=== PATIENT | female | born 1985 ===

== ENCOUNTER 2017-11-24 15:24 | Emergency (ER) | payer SELFPAY ==
[2017-11-24 15:30] VITALS: RESP 16; O2SAT 100
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
[2017-11-24 18:58] VITALS: BP 128/64; PULSE 82; TEMP 98.4
== END 2017-11-24 18:57 | disposition home or self-care (01) ==
LOC: H.ER 15:24
DX: S06.0X0A Concussion without loss of consciousness, initial encounter (principal); Y04.0XXA Assault by unarmed brawl or fight, initial encounter; Y92.89 Other specified places as the place of occurrence of the external cause

== ENCOUNTER 2017-12-01 04:23 | Emergency (ER) | payer OTHER ==
[2017-12-01 04:31] VITALS: BMI 26.6
--- NOTE | 2017-12-01 05:07 | ED PDOC ---
HPI: Allergic Reaction Time Seen by Provider: 12/01/17 04:54 Chief Complaint (Nursing): Allergic Reaction Chief Complaint (Provider): Itchy rash x 5 hours History Per: Patient History/Exam Limitations: no limitations Onset/Duration Of Symptoms: Hrs Current Symptoms Are (Timing): Still Present Possible Cause: Unknown Associated Symptoms: Skin Rash Additional Complaint(s): 32 yo female with no medical problems presents with itchy rash. PT states at midnight she woke up with itchiness on the right arm. PT states she took a cool shower and went back to bed. 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 PT denies new food, clothing, lotion, etc. Pt did not take anything for symptoms at home. Past Medical History Reviewed: Historical Data, Nursing Documentation, Vital Signs Vital Signs: Last Vital Signs Temp 97.7 F 12/01/17 04:31 Pulse 87 12/01/17 04:31 Resp 18 12/01/17 04:31 BP 114/73 12/01/17 04:31 Pulse Ox 99 12/01/17 04:31 - Medical History PMH: No Chronic Diseases - Surgical History Surgical History: No Surg Hx - Family History Family History: States: Unknown Family Hx - Living Arrangements Living Arrangements: With Family - Social History Current smoker - smoking cessation education provided: No - Home Medications Home Medications: Ambulatory Orders Medication Instructions Recorded Metoclopramide Hydrochloride 10 mg PO TID PRN #20 tab 02/18/14 [Reglan] Naproxen [Naprosyn] 500 mg PO BID PRN #30 tab 02/18/14 Albuterol HFA [Ventolin HFA 90 1 puff IH Q4 PRN #1 inh 08/24/15 mcg/actuation (8 g)] Azithromycin [Zithromax Z-Gonzalo] 250 mg PO DAILY #1 packet 08/24/15 Oseltamivir [Tamiflu] 75 mg PO BID #9 cap 08/24/15 Cyclobenzaprine [Flexeril] 10 mg PO TID #27 tab 11/24/17 - Allergies Allergies/Adverse Reactions: Allergies Allergy/AdvReac Type Severity Reaction Status Date / Time No Known Allergies Allergy Verified 12/01/17 04:31 Review of Systems ROS Statement: Except As Marked, All Systems Reviewed And Found Negative Constitutional: Negative for: Fever, Chills Gastrointestinal: Negative for: Nausea, Vomiting, Abdominal Pain Skin: Positive for: Rash Physical Exam - Reviewed Nursing Documentation Reviewed: Yes Vital Signs Reviewed: Yes - Physical Exam Appears: Positive for: Well, Non-toxic, No Acute Distress Head Exam: Positive for: ATRAUMATIC, NORMAL INSPECTION, NORMOCEPHALIC Skin: Positive for: Warm, Rash (Erythematous areas on the legs and trunk (+) blanching). Negative for: Normal Color Eye Exam: Positive for: Normal appearance ENT: Positive for: Normal ENT Inspection, Pharynx Is. Negative for: Pharyngeal Erythema, Tonsillar Exudate, Tonsillar Swelling Neck: Positive for: Normal, Painless ROM Cardiovascular/Chest: Positive for: Regular Rate, Rhythm Respiratory: Positive for: Normal Breath Sounds. Negative for: Accessory Muscle Use, Respiratory Distress Back: Positive for: Normal Inspection Extremity: Positive for: Normal ROM Neurologic/Psych: Positive for: Alert, Oriented - ECG O2 Sat by Pulse Oximetry: 99 Disposition - Clinical Impression Clinical Impression: Allergic reaction - Patient ED Disposition Is Patient to be Admitted: Transfer of Care - Disposition Disposition: Transfer of Care Disposition Time: 05:43 Condition: STABLE Forms: [email or web address] (Indian)
[2017-12-01] MEDS ORDERED: DiphenhydrAMINE 50 mg/ml Inj IVP STA (05:23)
[2017-12-01] MEDS ORDERED: Sodium Chloride 0.9% 1,000 ML IV STA (05:23)
[2017-12-01] MEDS ORDERED: DiphenhydrAMINE 50 mg/ml Inj ONE (05:32)
[2017-12-01] MEDS ORDERED: Famotidine 20mg/50ml 20 MG/50 ML BAG IVPB ONE (05:33)
--- NOTE | 2017-12-01 05:43 | ED PDOC ---
- Laboratory Results Result Diagrams: 12/01/17 05:30 12/01/17 05:30 - ECG O2 Sat by Pulse Oximetry: 99 Medical Decision Making Medical Decision Makin This patient is now under the direct care of this provider, endorsed from Frida Sim PA-C pending labs and re-evaluation. 0630 Patient notes slight improvement in symptoms. 0650 Patient notes that her throat is sore. * Rapid strep 0700 * Toradol 30mg IV Patient will be signed out to Dr. Robison pending rapid strep and re-eval. Scribe Attestation: Documented by Maria L Addison, acting as a scribe for Yoselyn Dykes MD. Provider Scribe Attestation: All medical record entries made by the Scribe were at my direction and personally dictated by me. I have reviewed the chart and agree that the record accurately reflects my personal performance of the history, physical exam, medical decision making, and the department course for this patient. I have also personally directed, reviewed, and agree with the discharge instructions and disposition. Disposition Counseled Patient/Family Regarding: Studies Performed, Diagnosis, Need For Followup - Clinical Impression Clinical Impression: Allergic reaction - POA Present On Arrival: None - Disposition Referrals: [facility] [Outside] Disposition: Routine/Home Disposition Time: 07:00 Condition: STABLE Additional Instructions: Followup with clinic for further testing into precise cause of rash. Return to ER for any new or worsening symptoms. Prescriptions: DiphenhydrAMINE [Benadryl] 25 mg PO Q4 PRN #15 cap PRN Reason: Rash Prednisone 50 mg PO DAILY #4 tab Instructions: Skin Rash, Allergy Skin Testing Forms: [employer] (Indonesian) Print Language: INDONESIAN Patient Signed Over To: Ricardo Robison III Handoff Comments: pending rapid strep and re-eval
[2017-12-01 05:46] LABS: BASO # 0.1 K/uL (0.0-0.2); BASO % 0.7 % (0.0-2.0); EOS # 0.6 K/uL (0.0-0.7); EOS % 5.4 % (0.0-4.0); HEMOGLOBIN 12.5 g/dL (12.0-16.0); LYMPH # 2.9 K/uL (1.0-4.3); LYMPH % 25.4 % (20.0-40.0); MEAN CELL VOLUME 86.8 fl (81.0-99.0); MEAN CORPUSCULAR HEMOGLOBIN 28.9 pg (27.0-31.0); MEAN CORPUSCULAR HGB CONC 33.3 g/dL (33.0-37.0); MEAN PLATELET VOLUME 9.9 fl (7.2-11.7); MONO # 1.1 K/uL (0.0-0.8); MONO % 9.5 % (0.0-10.0); NEUT # 6.8 K/uL (1.8-7.0); RBC 4.32 Mil/uL (3.80-5.20); RED CELL DISTRIBUTION WIDTH 14.6 % (11.5-14.5); WHITE BLOOD COUNT 11.6 K/uL (4.8-10.8)
[2017-12-01 05:51] LABS: ALB/GLOB RATIO 1.2 (1.0-2.1); ALBUMIN 3.9 g/dL (3.5-5.0); ALT/SGPT 33 U/L (9-52); AST/SGOT 22 U/L (14-36); BLOOD UREA NITROGEN 19 mg/dl (7-17); CALCIUM 8.9 mg/dL (8.4-10.2); GFR AFRICAN-AMERICAN > 60; GFR NON-AFRICAN AMERICAN > 60
--- NOTE | 2017-12-01 07:07 | ED PDOC ---
- Laboratory Results Result Diagrams: 12/01/17 05:30 12/01/17 05:30 - ECG O2 Sat by Pulse Oximetry: 99 (RA) Pulse Ox Interpretation: Normal - Progress Re-evaluation Time: 09:15 (Symptoms completed resolved. Pt feels well. Results reviewed with Pt using In-demand conceptor Yahaira. Pt is going to be discharged home to follow up with clinic to precise cause of rash.) Condition: Re-examined Medical Decision Making Medical Decision Making: Patient signed out to me by Dr. Dykes at 07:00, pending rapid strep test and re -evaluation (-) Group A Beta Strep Ag Upon provider evaluation patient is medically stable, and requires no further treatment in the ED at this time. Patient will be discharged with Rx for Benadryl and Prenisone. Counseling was provided and all questions were answered in turkmen via [employer] in store marketer regarding diagnosis and need for follow up with clinic for further testing into precise cause of rash. There is agreement to discharge plan. Return if symptoms persist or worsen. Scribe Attestation: Documented by Reza Vinson, acting as a scribe for Ricardo Robison III, DO Provider Scribe Attestation: All medical record entries made by the Scribe were at my direction and personally dictated by me. I have reviewed the chart and agree that the record accurately reflects my personal performance of the history, physical exam, medical decision making, and the department course for this patient. I have also personally directed, reviewed, and agree with the discharge instructions and disposition. Disposition - Clinical Impression Clinical Impression: Allergic reaction - POA Present On Arrival: None - Disposition Referrals: [facility] [Outside] Disposition: Routine/Home Disposition Time: 09:23 Condition: STABLE Additional Instructions: Followup with clinic for further testing into precise cause of rash. Return to ER for any new or worsening symptoms. Prescriptions: DiphenhydrAMINE [Benadryl] 25 mg PO Q4 PRN #15 cap PRN Reason: Rash Prednisone 50 mg PO DAILY #4 tab Instructions: Allergy Skin Testing, Skin Rash Forms: [facility] (Ukrainian) Print Language: SLOVENIAN
[2017-12-01 07:58] VITALS: RESP 19; TEMP 97
[2017-12-01 09:35] VITALS: BP 120/78; PULSE 78
[2017-12-01 10:50] VITALS: O2SAT 99
== END 2017-12-01 09:36 | disposition home or self-care (01) ==
LOC: H.ER 04:23
DX: T78.40XA Allergy, unspecified, initial encounter (principal)
CPT/HCPCS: 80053; 81025; 85025; 87070; 87430; 96361; 96374; 96375; 99284; J1200; J1885; J2930; J7030

== ENCOUNTER 2018-09-10 21:24 | Emergency (ER) | payer SELFPAY ==
[2018-09-10 21:24] VITALS: BMI 26.6
--- NOTE | 2018-09-11 00:02 | ED PDOC ---
HPI: Chest Pain Time Seen by Provider: 09/10/18 21:53 Chief Complaint (Nursing): Chest Pain Chief Complaint (Provider): Chest Pain History Per: Patient, Counter Hop (Pauline ID#: [id number]) Onset/Duration Of Symptoms: Days (x1) Additional Complaint(s): 33 years old female presents to ER for evaluation of left sided chest pain onset yesterday. Patient reports pain radiates up to her neck, side of face and upper back. She states she feels her chest is swollen associated with difficulty breathing. Patient reports taking Aspirin at home with no relief and states pain is not exertional. She denies fever, sweats and palpitations. PMD: Brian Hayes Past Medical History Reviewed: Historical Data, Nursing Documentation, Vital Signs Vital Signs: Last Vital Signs Temp 98.6 F 09/10/18 21:31 Pulse 73 09/10/18 21:31 Resp 16 09/10/18 21:31 BP 136/80 09/10/18 21:31 Pulse Ox 99 09/10/18 21:31 - Medical History PMH: No Chronic Diseases - Surgical History Surgical History: No Surg Hx - Family History Family History: States: Unknown Family Hx - Social History Current smoker - smoking cessation education provided: No Alcohol: None Drugs: Denies - Home Medications Home Medications: Ambulatory Orders Medication Instructions Recorded Metoclopramide Hydrochloride 10 mg PO TID PRN #20 tab 02/18/14 [Reglan] Naproxen [Naprosyn] 500 mg PO BID PRN #30 tab 02/18/14 Albuterol HFA [Ventolin HFA 90 1 puff IH Q4 PRN #1 inh 08/24/15 mcg/actuation (8 g)] Azithromycin [Zithromax Z-Gonzalo] 250 mg PO DAILY #1 packet 08/24/15 Oseltamivir Cap [Tamiflu] 75 mg PO BID #9 cap 08/24/15 Cyclobenzaprine [Flexeril] 10 mg PO TID #27 tab 11/24/17 DiphenhydrAMINE [Benadryl] 25 mg PO Q4 PRN #15 cap 12/01/17 Prednisone 50 mg PO DAILY #4 tab 12/01/17 Lidocaine 1 each TP DAILY #10 adh..patch 09/11/18 Methocarbamol [Robaxin] 750 mg PO BID PRN #20 tab 09/11/18 Naproxen [Naprosyn] 500 mg PO BID #30 tablet 09/11/18 - Allergies Allergies/Adverse Reactions: Allergies Allergy/AdvReac Type Severity Reaction Status Date / Time No Known Allergies Allergy Verified 09/10/18 21:31 Review of Systems ROS Statement: Except As Marked, All Systems Reviewed And Found Negative Constitutional: Negative for: Fever, Sweats Cardiovascular: Positive for: Chest Pain. Negative for: Palpitations Musculoskeletal: Positive for: Neck Pain (Left sided), Back Pain (left upper) Physical Exam - Reviewed Nursing Documentation Reviewed: Yes Vital Signs Reviewed: Yes - Physical Exam Appears: Positive for: Well, No Acute Distress Head Exam: Positive for: ATRAUMATIC, NORMOCEPHALIC Skin: Positive for: Normal Color, Warm, Dry Eye Exam: Positive for: Normal appearance, EOMI, PERRL Neck: Positive for: Normal, Painless ROM, Supple Cardiovascular/Chest: Positive for: Regular Rate, Rhythm. Negative for: Chest Non Tender (Tenderness of left chest wall), Murmur Respiratory: Positive for: Normal Breath Sounds. Negative for: Respiratory Distress Gastrointestinal/Abdominal: Positive for: Normal Exam, Soft. Negative for: Tenderness Back: Positive for: Other (Left upper back tenderness) Extremity: Positive for: Normal ROM. Negative for: Pedal Edema, Swelling Neurological/Psych: Positive for: Awake, Alert, Oriented (x3) - ECG ECG Rhythm: Positive for: Sinus Rhythm. Negative for: ST/T Changes Rate: 69 O2 Sat by Pulse Oximetry: 99 (RA) Pulse Ox Interpretation: Normal Medical Decision Making Medical Decision Making: Time: 2133 A/P: 33 years old female with a musculoskeletal chest pain --Not concerned for cardiac issue --EKG and CXR are normal 2355 Upon provider reevaluation patient is feeling better, is medically stable, and requires no further treatment in the ED at this time. Patient will be discharged home. Counseling was provided and all questions were answered regarding diagnosis and need for follow up with PMD. There is agreement to discharge plan. Return if symptoms persist or worsen. Scribe Attestation: Documented by Jyoti Deleon, acting as a scribe for Arcenio Reyez MD. Provider Scribe Attestation: All medical record entries made by the Scribe were at my direction and personally dictated by me. I have reviewed the chart and agree that the record accurately reflects my personal performance of the history, physical exam, medical decision making, and the department course for this patient. I have also personally directed, reviewed, and agree with the discharge instructions and disposition. Disposition - Clinical Impression Clinical Impression: Chest wall pain - Patient ED Disposition Is Patient to be Admitted: No - Disposition Referrals: Brian Hayes MD [Family Provider] - Disposition: Routine/Home Disposition Time: 23:56 Condition: IMPROVED Prescriptions: Lidocaine 1 each TP DAILY #10 adh..patch Methocarbamol [Robaxin] 750 mg PO BID PRN #20 tab PRN Reason: Pain, Severe (8-10) Naproxen [Naprosyn] 500 mg PO BID #30 tablet Instructions: Chest Pain That Is Not Caused by the Heart (DC), Muscle and Bone Pain (DC) Forms: [facility] (Bulgarian) Print Language: ALBANIAN
[2018-09-11 01:08] VITALS: BP 119/63; RESP 17; TEMP 98.3
[2018-09-11 05:11] VITALS: PULSE 69; O2SAT 99
--- NOTE | 2018-09-11 09:22 | RAD ---
Date of service: 09/10/2018 HISTORY: chest pain COMPARISON: Chest radiographs 05/05/2016. TECHNIQUE: Chest PA and lateral views FINDINGS: LUNGS: No active pulmonary disease. PLEURA: No significant pleural effusion identified. No pneumothorax apparent. CARDIOVASCULAR: No aortic atherosclerotic calcification present. Normal cardiac size. No pulmonary vascular congestion. OSSEOUS STRUCTURES: Scoliotic thoracic deformity reiterated, stable. VISUALIZED UPPER ABDOMEN: Normal. OTHER FINDINGS: None. IMPRESSION: No interval acute cardiopulmonary disease appreciated.
--- NOTE | 2018-09-11 13:37 | CARD ---
APPROVED REPORT Date of service: 09/10/2018 EKG Measurement Heart [id number] <Conclusion> Normal sinus rhythm Normal ECG
== END 2018-09-11 01:07 | disposition home or self-care (01) ==
LOC: H.ER 21:24
DX: R07.89 Other chest pain (principal)